=== PATIENT | female | born 1955 | race Caucasian/White ===

== ENCOUNTER 2021-07-26 17:09 | Inpatient (IN) ==
[2021-07-26] MEDS ORDERED: 0.9 % SODIUM CHLORIDE 1,000 ML IV ONE (17:40)
[2021-07-26] MEDS ORDERED: PIPERACILLIN SODIUM/TAZOBACTAM 3.375 GM in DEXTROSE 5% IN WATER 50 ML IV ONE (17:53)
--- NOTE | 2021-07-26 17:56 | Emergency Department Note ---
Abdominal Pain HPI General Chief Complaint: Abdominal Pain Stated Complaint: Bilateral Lower Quadrant Abdominal Pain Time Seen by Provider: 07/26/21 17:37 Source: patient Mode of arrival: ambulatory Limitations: no limitations History of Present Illness HPI Narrative: Narrative: 65-year-old female with history of diverticulitis and anxiety presents the ER after her primary care provider Luisana Haile got her CT scan results back which showed upper of diverticula with abscess. She states she is had abdominal pain for the past week or so it has been getting worse and she says she has had significant chills where she cannot get warm. She has had no nausea or vomiting or blood in her stools. She denies fever, chest pain, chest pressure or shortness of breath. Related Data Previous Rx's Medication Instructions Recorded lorazepam 0.5 mg tablet 0.5 mg PO ONCE PRN #20 tab 03/25/21 amoxicillin 875 mg-potassium 1 tab PO Q12H #20 tab 07/26/21 clavulanate 125 mg tablet Allergies Allergy/AdvReac Type Severity Reaction Status Date / Time No Known Drug Allergies Allergy Verified 07/26/21 12:59 Review of Systems ROS ROS Narrative: Narrative: All systems ED: reviewed and negative except as stated. PFSH Narrative Patient History Narrative: Narrative: Medical/Surgical/Family History All Active Problems (Updated 07/26/21 @ 19:16 by Ike Abdul PA-C) Colonic diverticular abscess (Acute) Hypotension (Acute) Diverticulitis (Acute) Abdominal pain (Acute) Mouth pain (Acute) Lymphadenopathy of head and neck (Acute) Viral syndrome (Acute) Plantar fasciitis (Acute) Wellness examination (Acute) Anxiety (Chronic) Skin cancer (Chronic ~2008) Acid reflux (Chronic) Injury, finger (Acute) Medical History Acid reflux Anxiety Diverticulitis Hypotension Injury, finger Lymphadenopathy of head and neck Mouth pain Plantar fasciitis Skin cancer (~2008) Viral syndrome Surgical History History of x 4; 1975, 1982, 1985, 1988 History of D&C x 2; 1978, 1980, and 1981 miscarriage History of ovarian cystectomy (~1981) History of surgery Removal skin cancer x 2-Dr Chery-2018 & 2019 History of surgery Removal scar tissue x 2, Dr Malhotra Family History Father Arthritis Diabetes High blood pressure Stroke Mother , at age 36 Leukemia Family/Other Diabetes Maternal & Paternal Grandparent Sister High blood pressure Brother High blood pressure Social History Smoking Status: Former smoker Alcohol Intake Frequency: a few times a week Substance Use: does not use Exam Narrative Narrative: Narrative: Gen: No acute distress Eyes: PERRL, no conjunctival injection , and symmetrical lids. Sclerae non ict bhaskar HENMT: Normocephalic Atraumatic head, external nose and ears. Moist MM. CVS: +S1/S2, No murmurs or gallops. Radial pulses 2+ and equal bilat. No swelling RESP: Unlabored respiratory effort . Clear to auscultation bilaterally (CTAB). No noted wheezes rales or ronchi. GI: Significant left lower quadrant abdominal tenderness without rebound tenderness or evidence of focal peritonitis MSK: Extremities w/o deformity or ttp. No cyanosis or clubbing. Skin: Warm, Dry . No rashes or lesions . Cap refill less than 2. Neuro: No focal neurological deficit Psych: Awake, Alert, & Oriented (AAO) x3. Appropriate mood and affect . General Limitations: no limitations Course Vital Signs Vital signs: Vital Signs Temperature 98.1 F 07/26/21 17:12 Pulse Rate 86 07/26/21 17:12 Respiratory Rate 18 07/26/21 17:12 Blood Pressure 100/61 07/26/21 17:12 Pulse Oximetry (%) 97 07/26/21 17:12 Temperature 98.1 F 07/26/21 17:12 Pulse Rate 86 07/26/21 17:12 Respiratory Rate 18 07/26/21 17:12 Blood Pressure 100/61 07/26/21 17:12 Pulse Oximetry (%) 97 07/26/21 17:12 [facility] MDM Narrative Medical decision making narrative: Narrative: Patient already had CT scan results showing a perforated diverticula with abscess. Dr. Jackson was consulted and reviewed imaging and believes he can admit the patient and observe her with antibiotics. She will be started on Zosyn at this time and she will be given a liter of fluid, CBC, CMP, lipase, blood cultures and lactic acid will be obtained. CBC: Barely elevated white count CMP: Pending Lipase: Pending Blood cultures: Pending Lactic acid: normal Covid: pending Dr. Jackson: Will be in to see the patient. Dr. Jackson will be admitting the patient at this time. Discharge Plan Patient/Caregiver Discharge Instructions Pt seen by [facility]/PA only: Yes Clinical Impression: Colonic diverticular abscess Patient Disposition: Xfer As Inpt ([facility]) Follow up with: Luisana Haile DO [Primary Care Provider] - Prescriptions: No Action lorazepam 0.5 mg tablet 0.5 mg PO ONCE PRN (Reason: anxiety) Qty: 20 4RF amoxicillin-pot clavulanate 875-125 mg tablet 1 tab PO Q12H Qty: 20 0RF
[2021-07-26] MEDS ORDERED: ONDANSETRON 4 MG/2 ML VIAL IV PRN (19:01)
[2021-07-26 19:05] LABS: Basophils # (Auto) 0.04 K/mcL (0.00-0.30); Basophils % (Auto) 0.3 % (0.0-2.0); Eosinophils # (Auto) 0.04 K/mcL (0.00-0.70); Eosinophils % (Auto) 0.3 % (0.0-7.0); Hematocrit 40.5 % (34.1-44.9); Hemoglobin 13.6 g/dL (11.2-15.7); Lymphocytes # (Auto) 2.83 K/mcL (1.50-4.80); Lymphocytes % (Auto) 24.2 % (15.5-49.0); Mean Cell Volume 89.8 fL (80.0-100.0); Mean Corpuscular HGB Conc 33.6 g/dL (31.0-36.0); Mean Platelet Volume 9.9 fL (7.4-10.4); Monocytes # (Auto) 1.38 K/mcL (0.10-0.90); Monocytes % (Auto) 11.8 % (1.0-12.0); Neutrophils % (Auto) 63.4 % (38.0-78.0); Platelet Count 400 K/mcL (140-440); RBC 4.51 M/mcL (3.59-5.38); Red Cell Distribution Width 12.8 % (11.5-14.5); WBC 11.7 K/mcL (4.5-11.0)
[2021-07-26 19:28] LABS: ALT/SGPT 10 U/L (<40); AST/SGOT 15 U/L (<32); Albumin 4.3 gm/dL (3.2-5.2); Albumin/Globulin Ratio 1.3 (1.0-2.3); Alkaline Phosphatase 72 U/L (39-117); Bilirubin,Total 0.6 mg/dL (0.1-1.0); Blood Urea Nitrogen 12 mg/dL (8-23); Calcium 9.1 mg/dL (8.6-10.4); Carbon Dioxide 18 mmol/L (22-30); Chloride 95 mmol/L (96-108); Globulin 3.4 gm/dL (2.2-3.7); Glomerular Filtration Rate 90; Glucose 90 mg/dL (70-105)
[2021-07-26] MEDS ORDERED: HYDROmorphone 0.5 MG/0.5 ML SYRINGE IV ONE (19:35)
[2021-07-26] MEDS: CIPROFLOXACIN 400 MG/200 ML BAG IV SCH (21:13)
[2021-07-26] MEDS: LACTATED RINGERS 1,000 ML IV SCH (21:14)
[2021-07-26] MEDS: 0.9 % SODIUM CHLORIDE 10 ML SYRINGE IV SCH (21:16)
[2021-07-26] MEDS: HYDROmorphone 0.5 MG/0.5 ML SYRINGE IV PRN (21:52)
[2021-07-26] MEDS: metroNIDAZOLE 500 MG/100 ML BAG IV SCH (22:19)
--- NOTE | 2021-07-26 22:20 | General Surg History&Physical ---
HPI History of Present Illness Patient information: Note initiated : 07/26/21 at 10:14 pm Service Date, if different from initiated Date: [] Patient: Venus Krause a 65 y/o F admitted on 07/26/21 for Bilateral Lower Quadrant Abdominal Pain. Chief Complaint: [] Chief complaint: abdominal pain History of present illness: Ms. Krause is a 65 year old F who presents with abdominal pain for the last 3-5 days, slowly progressive, no prior episodes of similar sort of pain or problems. No fever, chiills, nausea, emisis. Work up with CT shows diverticulitis with small fluid collection/abcess, contaiined. She denies having a colonoscopy in the past. Review of Systems Review of systems: all systems reviewed, negative other than above PFSH PFSH All Active Problems Colonic diverticular abscess (Acute) Hypotension (Acute) Diverticulitis (Acute) Abdominal pain (Acute) Mouth pain (Acute) Lymphadenopathy of head and neck (Acute) Viral syndrome (Acute) Plantar fasciitis (Acute) Wellness examination (Acute) Anxiety (Chronic) Skin cancer (Chronic ~2008) Acid reflux (Chronic) Injury, finger (Acute) Medical History Acid reflux Anxiety Diverticulitis Hypotension Injury, finger Lymphadenopathy of head and neck Mouth pain Plantar fasciitis Skin cancer (~2008) Viral syndrome Surgical History History of x 4; 1975, 1982, 1985, 1988 History of D&C x 2; 1978, 1980, and 1981 miscarriage History of ovarian cystectomy (~1981) History of surgery Removal skin cancer x 2-Dr Chery-2018 & 2019 History of surgery Removal scar tissue x 2, Dr Malhotra Family History Father Arthritis Diabetes High blood pressure Stroke Mother , at age 36 Leukemia Family/Other Diabetes Maternal & Paternal Grandparent Sister High blood pressure Brother High blood pressure Social History marital status: occupational status: employed occupation: [employer] smoking status: Former smoker quit date: 11/15/20 alcohol intake frequency: a few times a week substance use type: does not use MEDS/ALLERGIES Home Medications and Allergies Home Medications Medication Instructions Recorded Confirmed Type lorazepam 0.5 mg tablet 0.5 mg PO ONCE PRN #20 tab 03/25/21 07/26/21 Rx amoxicillin 875 mg-potassium 1 tab PO Q12H #20 tab 07/26/21 07/26/21 Rx clavulanate 125 mg tablet Allergies Allergy/AdvReac Type Severity Reaction Status Date / Time No Known Drug Allergies Allergy Verified 07/26/21 12:59 Physical Examination Vital Signs Vital signs: Temp Pulse Resp BP Pulse Ox 98.1 F 77 16 104/58 95 07/26/21 19:45 07/26/21 19:45 07/26/21 19:45 07/26/21 19:45 07/26/21 19:45 General physical appearance General physical exam: well developed, well nourished and no distress Eyes Eye exam: PERRL and normal ocular movement ENT ENT exam: normal pinna, normal nares, normal mucosa, no hearing loss and no congestion Head Head exam IM: Present atraumatic and normocephalic Neck Neck exam: no masses, no bruits, trachea midline, no lymphadenopathy and no venous distension Cardiovascular Cardiovascular exam IM: Present normal rate and rhythm Respiratory Respiratory exam: normal expansion, normal respiratory effort, clear to percussion and clear to auscultation Abdomen Abdomen: Present soft, tender, bowel sounds, guarding and distended (mild); Absent masses, rigid or rebound Hernia: Present none Genitourinary Genitourinary (Female): Present normal external genitalia Rectum Rectum: Present normal sphincter tone, no hemorrhoids, no tenderness, no masses and no bleeding Integumentary Integumentary: Present no rash, no growths and no abnormal pigmentation Neurologic Neurologic: Present normal coordination and normal sensation Musculoskeletal Musculoskeletal: Present normal gait and normal posture Psychiatric Psychiatric: Present oriented to time, oriented to person, oriented to place, speech is normal and memory intact Results Labs Result diagrams: 07/26/21 17:54 07/26/21 17:54 Labs: Abnormal lab results 07/26/21 07/26/21 Range/Units 17:54 17:54 WBC 11.7 H (4.5-11.0) K/mcL [place] # (Auto) 1.38 H (0.10-0.90) K/mcL Sodium 131 L (133-145) mmol/L Chloride 95 L (96-108) mmol/L Carbon Dioxide 18 L (22-30) mmol/L Anion Gap 18.0 H (8.0-16.0) Diabetes panel 07/26/21 Range/Units 17:54 Sodium 131 L (133-145) mmol/L Potassium 4.1 (3.3-5.1) mmol/L Chloride 95 L (96-108) mmol/L Carbon Dioxide 18 L (22-30) mmol/L BUN 12 (8-23) mg/dL Creatinine 0.7 (0.6-1.1) mg/dL Glucose 90 (70-105) mg/dL Calcium 9.1 (8.6-10.4) mg/dL AST 15 (<32) U/L ALT 10 (<40) U/L Alkaline Phosphatase 72 (39-117) U/L Total Protein 7.7 (5.9-8.4) gm/dL Albumin 4.3 (3.2-5.2) gm/dL Calcium panel 07/26/21 Range/Units 17:54 Calcium 9.1 (8.6-10.4) mg/dL Albumin 4.3 (3.2-5.2) gm/dL Pituitary panel 07/26/21 Range/Units 17:54 Sodium 131 L (133-145) mmol/L Potassium 4.1 (3.3-5.1) mmol/L Chloride 95 L (96-108) mmol/L Carbon Dioxide 18 L (22-30) mmol/L BUN 12 (8-23) mg/dL Creatinine 0.7 (0.6-1.1) mg/dL Glucose 90 (70-105) mg/dL Calcium 9.1 (8.6-10.4) mg/dL Adrenal panel 07/26/21 Range/Units 17:54 Sodium 131 L (133-145) mmol/L Potassium 4.1 (3.3-5.1) mmol/L Chloride 95 L (96-108) mmol/L Carbon Dioxide 18 L (22-30) mmol/L BUN 12 (8-23) mg/dL Creatinine 0.7 (0.6-1.1) mg/dL Glucose 90 (70-105) mg/dL Calcium 9.1 (8.6-10.4) mg/dL Total Bilirubin 0.6 (0.1-1.0) mg/dL AST 15 (<32) U/L ALT 10 (<40) U/L Alkaline Phosphatase 72 (39-117) U/L Total Protein 7.7 (5.9-8.4) gm/dL Albumin 4.3 (3.2-5.2) gm/dL All other labs normal. Imaging CT scan - abdomen: image reviewed A/P Assessment and plan (1) Colonic diverticular abscess: Plan: 65 y/o pleasant female with diverticular abscess Plan: admit NPO IV abx follow WBC Status: Acute Time Spent With Patient Time: Total time spent is greater than 50% in coordination of care (as documented) at patient's floor/unit and/or counseling patient:
[2021-07-27] MEDS: HYDROmorphone 0.5 MG/0.5 ML SYRINGE IV PRN ×2 (00:03→03:20)
[2021-07-27] MEDS: LACTATED RINGERS 1,000 ML IV SCH ×2 (05:17→07:23)
[2021-07-27] MEDS: 0.9 % SODIUM CHLORIDE 10 ML SYRINGE IV SCH ×3 (05:18→21:07)
[2021-07-27] MEDS: metroNIDAZOLE 500 MG/100 ML BAG IV SCH ×2 (05:18→15:01)
[2021-07-27 06:33] LABS: Basophils # (Auto) 0.03 K/mcL (0.00-0.30); Basophils % (Auto) 0.3 % (0.0-2.0); Eosinophils # (Auto) 0.05 K/mcL (0.00-0.70); Eosinophils % (Auto) 0.5 % (0.0-7.0); Hematocrit 35.7 % (34.1-44.9); Hemoglobin 12.1 g/dL (11.2-15.7); Lymphocytes # (Auto) 1.83 K/mcL (1.50-4.80); Lymphocytes % (Auto) 17.6 % (15.5-49.0); Mean Cell Volume 90.6 fL (80.0-100.0); Mean Corpuscular HGB Conc 33.9 g/dL (31.0-36.0); Mean Platelet Volume 9.5 fL (7.4-10.4); Monocytes # (Auto) 1.39 K/mcL (0.10-0.90); Monocytes % (Auto) 13.4 % (1.0-12.0); Neutrophils % (Auto) 68.2 % (38.0-78.0); Platelet Count 356 K/mcL (140-440); RBC 3.94 M/mcL (3.59-5.38); Red Cell Distribution Width 12.7 % (11.5-14.5); WBC 10.4 K/mcL (4.5-11.0)
[2021-07-27 06:55] LABS: Blood Urea Nitrogen 9 mg/dL (8-23); Calcium 8.4 mg/dL (8.6-10.4); Carbon Dioxide 23 mmol/L (22-30); Chloride 102 mmol/L (96-108); Glomerular Filtration Rate 95; Glucose 82 mg/dL (70-105)
[2021-07-27] MEDS ORDERED: ACETAMINOPHEN 1,000 MG/100 ML BAG IV PRN (08:13)
[2021-07-27] MEDS: CIPROFLOXACIN 400 MG/200 ML BAG IV SCH (08:55)
[2021-07-27] MEDS ORDERED: ACETAMINOPHEN 325 MG TABLET PO PRN (09:55)
[2021-07-27] MEDS ORDERED: IBUPROFEN 600 MG TABLET PO PRN (09:55)
[2021-07-27] MEDS ORDERED: oxyCODONE HCL 5 MG TABLET PO PRN (09:55)
--- NOTE | 2021-07-27 09:55 | General Surgery Progress Note ---
SUBJECTIVE Subjective Patient information: Note initiated : 07/27/21 at 9:53 am Service Date, if different from initiated Date: [] Patient: Venus Krause 65 y/o F admitted on 07/26/21 for Bilateral Lower Quadrant Abdominal Pain. Chief Complaint: [] Interval history: Hospital day #1 admitted for perforated sigmoid diverticulitis. Patient feels better today, white count is trending down. She denies any fevers chills nausea or vomiting at this time. She reports feeling less distended. Constitutional Vitals: Vital Signs Temp Pulse Resp BP Pulse Ox 97.3 F 72 18 106/58 96 07/27/21 09:06 07/27/21 07:20 07/27/21 07:20 07/27/21 07:20 07/27/21 07:26 Period Temp Pulse Resp BP Sys/Rodriguez Pulse Ox Last 24 Hr 97.3 F-98.1 F 72-86 16-18 93-117/52-61 95-98 Intake and Output 07/26/21 07/27/21 07/27/21 21:59 05:59 13:59 Intake Total 1050 1300 200 Output Total 250 650 Balance 800 650 200 Weight 158 lb 12.8 oz Intake & Output: Intake & Output 07/26/21 07/27/21 07/27/21 21:59 05:59 13:59 Intake Total 1050 1300 200 Output Total 250 650 Balance 800 650 200 Weight 158 lb 12.8 oz Intake: IV 1050 1300 200 Sodium Chloride 0.9% 1,000 ml @ 1000 Wide Open IV BOLUS ONE Rx#: [id number] Lactated Ringers 1,000 ml @ 125 1000 mls/hr IV .Q8H [facility] Rx#: [id number] Zosyn 3.375 gm In Dextrose 5% 50 in Water 50 ml @ 100 mls/hr IV ONCE ONE Rx#:[id number] Oral 0 Output: Void Amount 250 650 Other: Urine Appearance Clear Clear Clear Urine Color Pale Bright Yellow Dark Yellow Urine Odor Normal General appearance: cooperative and no acute distress GI/Abdominal GI/Abdominal exam: Present soft; Absent distended or tenderness A/P Assessment and plan (1) Colonic diverticular abscess: Status: Acute Plan Patient feels somewhat better this morning. We will start clear liquid diet, p.o. medications. If she tolerates will convert to p.o. antibiotics. Time Spent With Patient Time: Total time spent is greater than 50% in coordination of care (as documented) at patient's floor/unit and/or counseling patient:
[2021-07-27] MEDS: DEXTROSE 5%-1/2NS 1,000 ML IV SCH ×2 (10:19→21:07)
[2021-07-27] MEDS: CIPROFLOXACIN 500 MG TABLET PO SCH (21:07)
[2021-07-27] MEDS: metroNIDAZOLE 500 MG TABLET PO SCH (21:07)
[2021-07-28] MEDS: 0.9 % SODIUM CHLORIDE 10 ML SYRINGE IV SCH (05:43)
[2021-07-28] MEDS: metroNIDAZOLE 500 MG TABLET PO SCH (05:43)
[2021-07-28 06:38] LABS: Basophils # (Auto) 0.04 K/mcL (0.00-0.30); Basophils % (Auto) 0.5 % (0.0-2.0); Eosinophils % (Auto) 1.3 % (0.0-7.0); Hematocrit 34.3 % (34.1-44.9); Hemoglobin 11.5 g/dL (11.2-15.7); Lymphocytes # (Auto) 2.04 K/mcL (1.50-4.80); Lymphocytes % (Auto) 26.3 % (15.5-49.0); Mean Corpuscular HGB Conc 33.5 g/dL (31.0-36.0); Mean Platelet Volume 9.9 fL (7.4-10.4); Monocytes # (Auto) 0.89 K/mcL (0.10-0.90); Monocytes % (Auto) 11.5 % (1.0-12.0); Neutrophils % (Auto) 60.4 % (38.0-78.0); Platelet Count 369 K/mcL (140-440); RBC 3.81 M/mcL (3.59-5.38); Red Cell Distribution Width 12.5 % (11.5-14.5); WBC 7.8 K/mcL (4.5-11.0)
[2021-07-28 07:04] LABS: Blood Urea Nitrogen 4 mg/dL (8-23); Calcium 8.7 mg/dL (8.6-10.4); Carbon Dioxide 22 mmol/L (22-30); Chloride 104 mmol/L (96-108); Glomerular Filtration Rate 90; Glucose 144 mg/dL (70-105)
[2021-07-28] MEDS: DEXTROSE 5%-1/2NS 1,000 ML IV SCH (08:20)
[2021-07-28] MEDS: CIPROFLOXACIN 500 MG TABLET PO SCH (08:20)
--- NOTE | 2021-07-28 09:39 | Discharge Summary ---
Discharge Provider Provider Patient information: Note initiated : 07/28/21 at 9:37 am Service Date, if different from initiated Date: [] Patient: Venus Krause 65 y/o F admitted on 07/26/21 for Bilateral Lower Quadrant Abdominal Pain. Chief Complaint: [] Date of admission: 07/26/21 19:45 Discharge date: 07/28/21 Primary care physician: Luisana Haile DO Consults: 07/26/21 Consult to Physician [CONS] Stat Comment: Consulting Provider: Rogelio Jackson Reason For Exam: Physician to Consult Consult to Physician [CONS] Stat Comment: Consulting Provider: Rogelio Jackson Reason For Exam: Physician to Consult COURSE Hospital Course Hospital course: Patient mated with perforated sigmoid diverticulitis with small abscess, she progressed during hospitalization with improvement of pain improvement of white blood cell count, she is now tolerating a regular diet, oral antibiotics and continues to feel better. Discharge diagnosis: Perforated sigmoid diverticulitis Time Spent with Patient Time attestation: Total time spent providing and/or coordinating discharge services: Physical Examination Vital Signs Vital signs: Temp Pulse Resp BP Pulse Ox 97.8 F 64 16 100/51 98 07/28/21 07:26 07/28/21 07:26 07/28/21 07:26 07/28/21 07:26 07/28/21 07:26 Discharge Plan Patient/Caregiver Discharge Instructions Activity: increase activity as tolerated Diet: Regular Diet Activity Restrictions/Additional Instructions: Low residual diet until pain is gone then resume normal diet high in fiber. Follow-up with me in 1 to 2 weeks to schedule outpatient routine colonoscopy. Prescriptions: New metronidazole 500 mg Tablet 500 mg PO Q8 Qty: 27 0RF ciprofloxacin HCl 500 mg Tablet 500 mg PO BID Qty: 18 0RF Continued lorazepam 0.5 mg tablet 0.5 mg PO ONCE PRN (Reason: anxiety) Qty: 20 4RF amoxicillin-pot clavulanate 875-125 mg tablet 1 tab PO Q12H Qty: 20 0RF Follow Up Plan Follow up with: Rogelio Jackson MD [Physician] - Luisana Haile DO [Primary Care Provider] - Patient Disposition: Home, Self-Care Discharge Orders: Discharge Order (Routine); Ordered 07/28/21 Ordered By: Rogelio Jackson Pending Pending Pending: Resuscitation Status Resuscitate (Full Code) Diet Regular Diet Start Sat Jul 27 171 Ciprofloxacin (Ciprofloxacin 500 Mg Tablet) 500 mg PO BID [facility]; Protocol Last Admin: 07/28/21 08:20 Dose: 500 mg Documented by: Admin: 07/27/21 21:07 Dose: 500 mg Documented by: YVONNE Dextrose/Sodium Chloride (Dextrose 5%-1/2ns Iv Solution) 1,000 mls @ 100 mls/hr IV .Q10H [facility] Last Admin: 07/28/21 08:20 Dose: 100 mls/hr Documented by: Infusion: 07/28/21 07:07 Dose: 100 mls/hr Documented by: Admin: 07/27/21 21:07 Dose: 100 mls/hr Documented by: Infusion: 07/27/21 20:19 Dose: 100 mls/hr Documented by: Admin: 07/27/21 10:19 Dose: 100 mls/hr Documented by: LAUREN Metronidazole (Metronidazole 500 Mg Tablet) 500 mg PO Q8 [facility]; Protocol Last Admin: 07/28/21 05:43 Dose: 500 mg Documented by: Admin: 07/27/21 21:07 Dose: 500 mg Documented by: YVONNE Sodium Chloride (0.9 % Sodium Chloride 10 Ml Syringe) 10 ml IV Q8 [facility] Last Admin: 07/28/21 05:43 Dose: Not Given Documented by: Admin: 07/27/21 21:07 Dose: Not Given Documented by: Admin: 07/27/21 15:01 Dose: Not Given Documented by: Admin: 07/27/21 05:18 Dose: Not Given Documented by: Admin: 07/26/21 21:16 Dose: Not Given Documented by: DANIELA Shift Summary 07/28/21 04:38 Shift Summary by Akanksha Louis Primary Diagnosis: Bilateral Lower Quadrant Abdominal Pain. Registration Status: ADMIT - 07/26 @ 1945 M/S IP Date of Surgery (if applicable): Pertinent Medical Hx/Issue(s): Hypotension, mult removal of skin CA, Lysis of abd adhesions, x4, appendectomy. CT on admit shows diverticulitis with small fluid collection/abcess, contaiined Vital Signs : Bp after walking salgado and sitting in chair 86/53 (64), asymptomatic. Retook after lying supine, 95/48 (63). Denies dizziness or lightheadedness Neuro/Mental Status: A&OX4 Ambulation Status : Independent. Diet : Advancing to regular diet PRN Meds : None given this shift ABD : Tender, soft, distended. Pt c/o bloating with urinary urgency Lines/Tubes: D51/2NS@100ml/HR in R. hand. Lab/Rad results: MD aware of all labs. Void / BM: Voiding cl yellow per toilet. x3 loose BMs this shift. Recommendations/questions for MD: Pt states bloating has returned, tenderness to lower abdomen. Expected date of discharge: Possibly tomorrow. Discharge Plan (needs, disposition, etc): To return home with . Initialized on 07/28/21 04:38 - END OF NOTE
== END 2021-07-28 11:25 | disposition home or self-care (01) | DRG 392 ==
LOC: ED 17:09 → MEDSUR 19:45
PROVIDERS: ADMIT Surgery; ATTEND Surgery

== ENCOUNTER 2022-01-21 11:01 | Inpatient (IN) ==
[2022-01-13 13:58] LABS: Basophils # (Auto) 0.04 K/mcL (0.00-0.30); Basophils % (Auto) 0.7 % (0.0-2.0); Eosinophils % (Auto) 1.7 % (0.0-7.0); Hematocrit 42.2 % (34.1-44.9); Hemoglobin 13.9 g/dL (11.2-15.7); Lymphocytes # (Auto) 2.54 K/mcL (1.50-4.80); Lymphocytes % (Auto) 44.3 % (15.5-49.0); Mean Cell Volume 89.8 fL (80.0-100.0); Mean Corpuscular HGB Conc 32.9 g/dL (31.0-36.0); Mean Platelet Volume 9.9 fL (8.8-12.5); Monocytes # (Auto) 0.65 K/mcL (0.10-0.90); Monocytes % (Auto) 11.3 % (1.0-12.0); Neutrophils % (Auto) 41.7 % (38.0-78.0); Platelet Count 395 K/mcL (140-440); Red Cell Distribution Width 12.8 % (11.5-14.5); WBC 5.7 K/mcL (4.5-11.0)
[2022-01-13 14:48] LABS: Blood Urea Nitrogen 12 mg/dL (8-23); Carbon Dioxide 26 mmol/L (22-30); Chloride 100 mmol/L (96-108); Glomerular Filtration Rate 90; Glucose 94 mg/dL (70-105)
--- NOTE | 2022-01-16 08:25 | EKG ---
[facility] Test Date: 2022-01-13 Pat Name: Venus Krause Department: [facility] Room: Gender: Female Senior Animator: : 1955 Requested By: Conner Cardenas Order Number: [id number] Reading MD: Jacob Jones D.O. Measurements Intervals Herman Rate: 57 P: 53 ID: [id number] QRS: 59 QRSD: 88 T: 60 QT: 449 QTc: 438 Interpretive Statements Sinus rhythm Electronically Signed On 01-16-2022 8:25:25 PDT by Jacob Jones D.O. /store/M0/[id number]
[~2022-01-21 11:01] MED LIST: ERTAPENEM 1 GM in 0.9 % SODIUM CHLORIDE 50 ML IV SCH
[2022-01-21] MEDS ORDERED: ROCURONIUM 10 MG/ML ML IV ONE (12:35)
[2022-01-21] MEDS ORDERED: fentaNYL 100 MCG/2 ML VIAL IV ONE (12:35)
[2022-01-21] MEDS ORDERED: PROPOFOL 200 MG/20 ML VIAL IV ONE (12:35)
[2022-01-21] MEDS ORDERED: INDOCYANINE GREEN 25 MG VIAL IV ONE ×2 (12:35→13:20)
[2022-01-21] MEDS ORDERED: KETAMINE 50 MG/ML Syringe (ANEST) IV ONE (12:35)
[2022-01-21] MEDS ORDERED: MAGNESIUM SULFATE 2 GM/50 ML BAG IV ONE (12:35)
[2022-01-21] MEDS ORDERED: LIDOCAINE HCL/PF 100 MG/5 ML SYRINGE IV ONE (12:35)
[2022-01-21] MEDS ORDERED: GLYCOPYRROLATE 0.2 MG/ML VIAL IV ONE (12:35)
[2022-01-21] MEDS ORDERED: ONDANSETRON 4 MG/2 ML VIAL ONE (12:35)
[2022-01-21] MEDS ORDERED: SUCCINYLCHOLINE 20 MG/ML ML IV ONE (12:35)
[2022-01-21] MEDS ORDERED: DEXAMETHASONE 10 MG/ML VIAL ONE (12:35)
[2022-01-21] MEDS ORDERED: SUGAMMADEX SODIUM 200 MG/2 ML VIAL IV ONE (12:35)
[2022-01-21] MEDS ORDERED: PHENYLephrine 1 MG/10 ML SYRINGE (ANEST) ONE (12:35)
[2022-01-21] MEDS ORDERED: MIDAZOLAM 2 MG/2 ML VIAL ONE (12:35)
[2022-01-21] MEDS ORDERED: BUPIVACAINE PF 0.5% 30 ML VIAL IJ ONE (13:59)
[2022-01-21] MEDS ORDERED: LIDOCAINE W/EPI 1% 20 ML VIAL IJ ONE (13:59)
--- NOTE | 2022-01-21 14:45 | Operative Note ---
Brief Operative Note Date of procedure: 01/21/22 Pre-op diagnosis: Chronic diverticulitis with history of complicated diverticu litis Post-op diagnosis: same Procedure: Robotic assisted sigmoid colectomy Grafts/Implants: No Anesthesia: GETA Findings: Consistent with history Complications: none Surgeon: Rogelio Jackson Estimated blood loss (cc): 25 Specimens Removed/Pathology: other (Sigmoid colon, anastomotic donuts) Condition: stable Disposition: floor Operative Note Operative Note: After all risk benefits and alternatives to the procedure were discussed with the patient at length she verbalized understanding and desire to continue the procedure. Patient was taken main operating placed upon the operative table. General anesthesia was induced endotracheal tube. Patient's prepped and draped in the standard sterile surgical fashion. Surgical timeout was taken to verify patient and procedure being performed. Patient had been placed in modified lithotomy and Abdi catheter placed prior to being prepped. 1% lidocaine half percent Marcaine was used for local anesthesia throughout the case. Right lower quadrant incision was made carried down through skin subtenons tissue. The external fascia was opened horizontally, the rectus muscle spread in the standard fashion, the posterior fascia was grasped and entered sharply. The abdominal cavity was entered and then a wound protector was placed into this incision. The abdominal cavity was insufflated with carbon oxide after a 12 mm trocar was placed into the wound protector. Visual inspection revealed no injuries. 8 mm supraumbilical, 2 8 mm left upper quadrant trochars were then placed under direct vision. Patient was placed in a headdown left side up position and the da Abel robot was docked in the standard fashion. Omental adhesions were encountered in the pelvis consistent with her prior history these were carefully taken down with blunt and vessel sealer electrocaut veronica. The omentum was then retracted to the upper abdomen and the sigmoid colon adhesions were carefully taken down with blunt and vessel sealer electrocautery to restore the normal colonic anatomy. Once this was done the sigmoid was retracted superiorly the rectosigmoid junction was identified the peritoneum was entered and the meso rectum was entered and dissected without difficulty. Division point just on the proximal rectum was identified and the mesentery was taken down to this area with the vessel sealing device. The rectum was encircled and then transected with a SANTO stapler. The distal sigmoid was fibrotic from the prior diverticular disease a good transition point of proximal this was identified the colon was dissected free and transected in the standard fashion. The mesentery was then taken down with a vessel sealing device to connect the 2 transection lines. The specimen was then placed into the right lower quadrant and hemostasis was assured. Firefly clean geography was used to verify good blood flow to the end of the rectum and the end of the colon. Attention was then turned to the rectum where EEA dilator sutures were used to size up the rectum, it dilated to 33 without difficulty. A 29 EEA anastomosis was then chosen and the anvil device was passed through the right lower quadrant incision into the abdomen. The end of the colon staple line was removed with the vessel sealing device, the anvil was placed into the end of the colon, a pursestring suture of 3-0 PDS was placed to secure the anvil in the end of the colon. A 29 EEA stapler was then brought up through the rectum, the spike was brought out just below the staple line on the lateral edge to ensure only 1 overlapping staple line. The anvil was attached and a standard EEA stapled anastomosis was performed. The stapler was removed through the rectum into full anastomotic donuts were inspected. Adult colonoscope was then used to insufflate the rectum it was advanced to the staple line, the staple line was fully distended, there was no evidence of an air leak and the staple line was hemostatic. The air was removed from the rectum. The irrigation was suctioned free from the abdominal cavity. The colon was once again inspected and found to lay without tension in the pelvis without difficulty. Firefly angiography was once again used to verify good blood flow across the new anastomotic staple line. The specimen was then grasped through the right lower quadrant, the da Abel robot was undocked in the standard fashion. CO2 and trochars were removed under direct vision. Trocar sites were inspected for hemostasis. The specimen was then brought out through the right lower quadrant incision and passed off the field for surgical pathology. The wound protector was then removed from the right lower quadrant incision the fascia was closed with a running looped 0 PDS suture. The subcutaneous tissue was irrigated with 1 L of Irrisept. It was inspected for hemostasis. All skin incisions were then closed with interrupted 4-0 Monocryl suture. Dermabond dressings were applied. Gauze and Tegaderm dressings were then placed over all incisions. Patient was then awakened from general anesthesia transported postanesthesia care unit awake alert in good condition.
[2022-01-21] MEDS ORDERED: ONDANSETRON 4 MG/2 ML VIAL IV PRN ×2 (14:46→15:03)
[2022-01-21] MEDS ORDERED: ACETAMINOPHEN 325 MG TABLET PO PRN (14:46)
[2022-01-21] MEDS ORDERED: IBUPROFEN 600 MG TABLET PO PRN (14:46)
[2022-01-21] MEDS ORDERED: KETOROLAC 30 MG/ML VIAL IV SCH (15:00)
[2022-01-21] MEDS ORDERED: ACETAMINOPHEN 1,000 MG/100 ML BAG IV ONE (15:03)
[2022-01-21] MEDS ORDERED: HYDROmorphone 0.5 MG/0.5 ML SYRINGE IV PRN (15:03)
[2022-01-21] MEDS ORDERED: MEPERIDINE 50 MG/ML VIAL IM PRN (15:03)
[2022-01-21] MEDS ORDERED: IPRATROPIUM/ALBUTEROL 3 ML AMPUL.NEB NEB PRN (15:03)
[2022-01-21] MEDS ORDERED: METOPROLOL TARTRATE 5 MG/5 ML VIAL IV PRN (15:03)
[2022-01-21] MEDS ORDERED: LACTATED RINGERS 250 ML IV PRN (15:03)
[2022-01-21] MEDS ORDERED: LABETALOL 5 MG/ML ML IV PRN (15:03)
[2022-01-21] MEDS ORDERED: PROMETHAZINE 25 MG/ML VIAL IM PRN (15:03)
[2022-01-21] MEDS ORDERED: FLUMAZENIL 0.1 MG/ML ML IV PRN (15:03)
[2022-01-21] MEDS ORDERED: METHOCARBAMOL 1,000 MG/10 ML VIAL IV PRN (15:03)
[2022-01-21] MEDS ORDERED: NALOXONE HCL 0.4 MG/ML VIAL IV PRN (15:03)
[2022-01-21] MEDS: fentaNYL 100 MCG/2 ML VIAL IV PRN ×4 (15:09→15:40)
[2022-01-21] MEDS ORDERED: LACTATED RINGERS 1,000 ML IV SCH (15:15)
[2022-01-21] MEDS: LACTATED RINGERS 1,000 ML IV SCH ×2 (16:58→20:05)
[2022-01-21] MEDS: oxyCODONE HCL 5 MG TABLET PO PRN ×2 (19:41→23:52)
[2022-01-21] MEDS ORDERED: SUCRETS LOZENGE PO PRN (19:57)
[2022-01-21] MEDS ORDERED: SUCRETS LOZENGE PO ONE (20:15)
[2022-01-21] MEDS: HYDROmorphone 0.5 MG/0.5 ML SYRINGE IV PRN (21:22)
[2022-01-22] MEDS: LACTATED RINGERS 1,000 ML IV SCH ×5 (02:07→21:46)
[2022-01-22] MEDS: HYDROmorphone 0.5 MG/0.5 ML SYRINGE IV PRN ×5 (02:10→19:53)
[2022-01-22 06:46] LABS: Basophils # (Auto) 0.01 K/mcL (0.00-0.30); Basophils % (Auto) 0.1 % (0.0-2.0); Eosinophils # (Auto) 0 K/mcL (0.00-0.70); Eosinophils % (Auto) 0 % (0.0-7.0); Hematocrit 36.7 % (34.1-44.9); Hemoglobin 12.5 g/dL (11.2-15.7); Lymphocytes # (Auto) 1.44 K/mcL (1.50-4.80); Lymphocytes % (Auto) 13.3 % (15.5-49.0); Mean Cell Volume 88.2 fL (80.0-100.0); Mean Corpuscular HGB Conc 34.1 g/dL (31.0-36.0); Mean Platelet Volume 9.6 fL (8.8-12.5); Monocytes # (Auto) 0.85 K/mcL (0.10-0.90); Monocytes % (Auto) 7.8 % (1.0-12.0); Neutrophils % (Auto) 78.4 % (38.0-78.0); Platelet Count 351 K/mcL (140-440); RBC 4.16 M/mcL (3.59-5.38); Red Cell Distribution Width 12.4 % (11.5-14.5); WBC 10.8 K/mcL (4.5-11.0)
[2022-01-22 07:06] LABS: Blood Urea Nitrogen 11 mg/dL (8-23); Calcium 8.8 mg/dL (8.6-10.4); Carbon Dioxide 23 mmol/L (22-30); Chloride 101 mmol/L (96-108); Glomerular Filtration Rate 95; Glucose 125 mg/dL (70-105)
[2022-01-22] MEDS: oxyCODONE HCL 5 MG TABLET PO PRN ×2 (14:17→21:48)
--- NOTE | 2022-01-22 15:45 | General Surgery Progress Note ---
SUBJECTIVE Subjective Patient information: Note initiated : 01/22/22 at 3:43 pm Service Date, if different from initiated Date: [] Patient: Venus Krause 66 y/o F admitted on 01/21/22 for Robotic Assisted Sigmoid Colectomy. Chief Complaint: [] Principal diagnosis: Postop day #1 status post robotic sigmoid colectomy Interval history: Patient is doing very well overnight, tolerated clear liquid diet. Has started to pass some flatus this afternoon. No fevers chills nausea or vomiting. Constitutional Vitals: Vital Signs Temp Pulse Resp BP Pulse Ox O2 Del Method O2 Flow Rate 98.4 F 64 16 101/54 99 5 01/22/22 12:00 01/22/22 12:00 01/22/22 12:00 01/22/22 12:00 01/22/22 12:00 01/22/22 12:00 01/21/22 14:52 Period Temp Pulse Resp BP Sys/Rodriguez Pulse Ox O2 Del Method O2 Flow Rate Last 24 Hr 97.2 F-98.4 F 63-81 12-16 100-124/54-74 91-99 Room Air-Room Air Intake and Output 01/22/22 01/22/22 01/22/22 05:59 13:59 21:59 Intake Total 720 2280 1293 Output Total 650 3000 350 Balance 70 -720 943 Weight 171 lb 6.4 oz Patient Weight 01/23/22 05:59 Weight 171 lb 6.4 oz Intake & Output: Intake & Output 01/22/22 01/22/22 01/22/22 05:59 13:59 21:59 Intake Total 720 2280 1293 Output Total 650 3000 350 Balance 70 -720 943 Weight 171 lb 6.4 oz Intake: IV 1000 953 Lactated Ringers 1,000 ml @ 100 1000 953 mls/hr IV .Q10H [facility] Rx#: [id number] Oral 720 1280 340 Output: Urine Catheter Amount 650 2600 Void Amount 400 350 Other: Meal Lunch Percent of Meal Consumed 50% Urine Appearance Clear Uretheral (Abdi) Clear Urine Color Yellow Uretheral (Abdi) Yellow General appearance: cooperative and no acute distress GI/Abdominal GI/Abdominal exam: Present soft and tenderness; Absent distended Additional comments: Dressings are clean dry and intact, no evidence of infection A/P Assessment and plan (1) Diverticulitis: Plan: Postop day #1 status post robotic assisted colectomy. Patient is doing very well, has some return of bowel function. DC Abdi. Continue with ambulation. Status: Acute Time Spent With Patient Time: Total time spent is greater than 50% in coordination of care (as documented) at patient's floor/unit and/or counseling patient:
[2022-01-23] MEDS: HYDROmorphone 0.5 MG/0.5 ML SYRINGE IV PRN ×2 (00:48→04:15)
[2022-01-23] MEDS: LACTATED RINGERS 1,000 ML IV SCH (01:46)
[2022-01-23] MEDS: oxyCODONE HCL 5 MG TABLET PO PRN (01:46)
--- NOTE | 2022-01-23 14:43 | General Surgery Progress Note ---
SUBJECTIVE Subjective Patient information: Note initiated : 01/23/22 at 2:42 pm Service Date, if different from initiated Date: [] Patient: Venus Krause 66 y/o F admitted on 01/21/22 for Robotic Assisted Sigmoid Colectomy. Chief Complaint: [] Principal diagnosis: Postop day #2 status post robotic sigmoid colectomy Interval history: Patient is doing well overnight, continues to pass flatus this morning, up ambulatory, no nausea vomiting fevers or chills Constitutional Vitals: Vital Signs Temp Pulse Resp BP Pulse Ox O2 Del Method O2 Flow Rate 98.0 F 65 12 119/72 96 5 01/23/22 12:00 01/23/22 12:00 01/23/22 12:00 01/23/22 12:00 01/23/22 12:00 01/23/22 12:00 01/21/22 14:52 Period Temp Pulse Resp BP Sys/Rodriguez Pulse Ox O2 Del Method O2 Flow Rate Last 24 Hr 97.4 F-98.8 F 62-69 12-16 107-120/61-77 95-98 Room Air-Room Air Intake and Output 01/23/22 01/23/22 01/23/22 05:59 13:59 21:59 Intake Total 1200 898 Output Total 600 900 Balance 600 -2 Intake & Output: Intake & Output 01/23/22 01/23/22 01/23/22 05:59 13:59 21:59 Intake Total 1200 898 Output Total 600 900 Balance 600 -2 Intake: IV 1000 658 Lactated Ringers 1,000 ml @ 100 1000 658 mls/hr IV .Q10H [facility] Rx#: [id number] Oral 200 240 Output: Void Amount 600 900 Other: Meal Breakfast Percent of Meal Consumed 50% Urine Appearance Clear Urine Color Yellow Pale Urine Odor Normal General appearance: cooperative and no acute distress GI/Abdominal GI/Abdominal exam: Present soft and tenderness; Absent distended Additional comments: Dressings are clean dry and intact, no evidence of infection A/P Assessment and plan (1) Diverticulitis: Plan: Postop day #2 status post robotic assisted sigmoid colectomy. Patient is doing very well, tolerating clear liquid diet, has had evidence of return of bowel function. Plan: Advance diet to regular as tolerated, continue ambulation, DC IV fluid. Status: Acute Time Spent With Patient Time: Total time spent is greater than 50% in coordination of care (as documented) at patient's floor/unit and/or counseling patient:
[2022-01-24] MEDS: LACTATED RINGERS 1,000 ML IV SCH (03:35)
--- NOTE | 2022-01-24 07:56 | Discharge Summary ---
Discharge Provider Provider IMPORTANT FOLLOW-UP INFORMATION FOR PCP: Patient information: Note initiated : 01/24/22 at 7:56 am Service Date, if different from initiated Date: [] Patient: Venus Krause 66 y/o F admitted on 01/21/22 for Robotic Assisted Sigmoid Colectomy. Chief Complaint: [] Date of admission: 01/21/22 11:01 Discharge date: 01/24/22 Primary care physician: Luisana Haile DO COURSE Hospital Course Hospital course: Patient is admitted for and underwent a robotic assisted sigmoid colectomy. Postop day #2 patient was tolerating clear liquid diet was advanced to a regular diet and had return of flatus. Postop day #3 patient had bowel movement, is tolerating a regular diet, pain is well controlled and she is ambulatory. Discharge diagnosis: Status post sigmoid colectomy Time Spent with Patient Time attestation: Total time spent providing and/or coordinating discharge services: Time spent: Less than 30 minutes Physical Examination Vital Signs Vital signs: Temp Pulse Resp BP Pulse Ox O2 Del Method O2 Flow Rate 98.4 F 75 16 117/72 96 5 01/24/22 05:33 01/24/22 05:33 01/24/22 05:33 01/24/22 05:33 01/24/22 05:33 01/24/22 05:33 01/21/22 14:52 Discharge Plan Patient/Caregiver Discharge Instructions Activity: increase activity as tolerated Diet: Regular Diet Activity Restrictions/Additional Instructions: Resume normal activity as tolerated. May shower as tolerated. Follow-up with me in 1 to 2 weeks. Prescriptions: New ibuprofen 800 mg tablet 800 mg PO TID PRN (Reason: pain) Qty: 90 0RF acetaminophen [Tylenol 8 Hour] 650 mg tablet extended release 650 mg PO Q8H PRN (Reason: pain) Qty: 90 0RF oxycodone 5 mg tablet 5 mg PO Q6H PRN (Reason: pain) Qty: 5 0RF No Action lorazepam 0.5 mg tablet 0.5 mg PO ONCE PRN (Reason: anxiety) Qty: 20 4RF multivitamin Tablet 1 tab PO QDAY Rx Instructions: liquid miconazole 50 mg Muco-Adhesive Buccal Tablet 50 mg BUCCAL QAM Probiotic 3 billion cell Capsule 3,000 mmu cells PO QDAY Rx Instructions: administer with a meal Follow Up Plan Follow up with: Rogelio Jackson MD [Physician] - 02/05/22 8:30 am Patient Disposition: Home, Self-Care Discharge Orders: Discharge Order (Routine); Ordered 01/24/22 Ordered By: Rogelio Jackson Pending Pending Pending: Resuscitation Status Resuscitate (Full Code) Diet Regular Diet Start Kim Oct 13 0802 Acetaminophen (Acetaminophen 325 Mg Tablet) 650 mg PO Q6HP PRN; Protocol PRN Reason: Per Pain Protocol/Fever > 101 Last Admin: 01/22/22 00:52 Dose: 650 mg Documented By: EDIS Hydromorphone HCl (Hydromorphone 0.5 Mg/0.5 Ml Syringe) 0.5 mg IV Q2HP PRN; Protocol PRN Reason: Per Pain Protocol Last Admin: 01/23/22 04:15 Dose: 0.5 mg Documented By: Admin: 01/23/22 00:48 Dose: 0.5 mg Documented By: Admin: 01/22/22 19:53 Dose: 0.5 mg Documented By: Admin: 01/22/22 17:42 Dose: 0.5 mg Documented By: Admin: 01/22/22 11:20 Dose: 0.5 mg Documented By: Admin: 01/22/22 08:11 Dose: 0.5 mg Documented By: Admin: 01/22/22 02:10 Dose: 0.5 mg Documented By: Admin: 01/21/22 21:22 Dose: 0.5 mg Documented By: EDIS Ibuprofen (Ibuprofen 600 Mg Tablet) 600 mg PO QIDP PRN; Protocol PRN Reason: Per Pain Protocol/Fever > 101 Last Admin: 01/24/22 02:27 Dose: 600 mg Documented By: DANIELA Oxycodone HCl (Oxycodone Hcl 5 Mg Tablet) 5 mg PO Q4HP PRN; Protocol PRN Reason: Per Pain Protocol Last Admin: 01/23/22 01:46 Dose: 5 mg Documented By: Admin: 01/22/22 21:48 Dose: 5 mg Documented By: Admin: 01/22/22 14:17 Dose: 5 mg Documented By: Admin: 01/21/22 23:52 Dose: 5 mg Documented By: Admin: 01/21/22 19:41 Dose: 5 mg Documented By: EDIS Shift Summary 01/24/22 02:55 Shift Summary by Mary Covington Primary Diagnosis: S/P Robotic assisted sigmoid colectomy Registration Status: 01/21 - M/S IP Date of Surgery (if applicable): 01/21 - Robotic assisted sigmoid colectomy Pertinent Medical Dx/Issue(s): Chronic diverticulitis with history of complicated diverticulitis, lymphadenopathy of head & neck, acid reflux Vital Signs with Trends: VSS on RA Neuro : A&OX4 Ambulation status : Independent in rm & salgado multiple times Diet : Regular, denies nausea. Pain management (acute vs. chronic): Motrin X1, rates pain 4-7/10, splinting abd appropriately Lab/Rad (abnormals, trends): Urinary output greater than 30mL/hr? Independent to BR, flushing Date of last BM: Large soft BM this shift. Lines/Tubes: No IV access. Skin / Wound : Lap sites X4, gauze & Tegaderm Recommendations/questions for MD: Discharge Plan (needs, disposition, etc): Pt hoping to D/C home today Initialized on 01/24/22 02:55 - END OF NOTE
== END 2022-01-24 09:15 | disposition home or self-care (01) | DRG 331 ==
LOC: MEDSUR 11:01
PROVIDERS: ADMIT Surgery; ATTEND Surgery